=== PATIENT | male | born 1955 | race Caucasian/White ===

== ENCOUNTER 2018-03-30 07:33 | Inpatient (IN) ==
--- NOTE | 2018-03-10 08:57 | Anesthesiology Consultation ---
Date of Service March 10, 2018 Assessment & Plan Chart Review Chart Review: Acceptable Risk for Surgery and Patient seen in Pre Admission Testing Teaching & Discussion Pre-Anesthesia Teaching/Discussion Notes: Instructed NPO after midnight before surgery, except medications with 15 cc of water. Medication instructions provided according to the PAT guidelines. History Surgery Operation Date: 03/30/18 07:35 Proposed Procedures p Robotic Assisted Laparoscopic Retroperitoneal Prostatectomy, Possible Pelvic Lymph Node Dissection, Suprapubic Tube - Josiah Epperson MD Height/Weight Height: 5 ft 9 in Weight: 99.9 kg Allergies Allergy/AdvReac Type Severity Reaction Status Date / Time No Known Allergies Allergy Verified 03/07/18 11:02 Medications Home Medications Medication Instructions Recorded Confirmed Last Taken aspirin [Aspir-81] 81 mg PO QAM 03/07/18 03/07/18 Unknown lisinopril-hydrochlorothiazide 1 tab PO QAM 03/07/18 03/07/18 Unknown omega 2-vec-kgc-fish oil [Fish Oil] 1 cap PO QAM 03/07/18 03/07/18 Unknown potassium 2 tab PO QAM 03/07/18 03/07/18 Unknown turmeric root extract 500 mg PO QAM 03/07/18 03/07/18 Unknown Past Medical History Medical History BPH (benign prostatic hyperplasia) Degenerative disc disease LUMBAR STENOSIS History of prostate cancer SEE MRI (JAN 2018) SUGGESTIVE OF PROSTATE CA, REASON FOR PROCEDURE Hypertension Kidney stones Sciatica Past Surgical History Surgical History History of appendectomy History of herniorrhaphy X2 WITH MESH - LEFT INGUINAL, UMBILICAL History of tonsillectomy Salivary gland calculi EXCISION OF STONE Past Anesthesia History No Hx of Anesthesia Complications and No Family Hx of Anesthesia Complications History of PONV No Motion Sickness Screening History of Motion Sickness: No Social History Smoking Status: Former smoker tobacco type: cigarettes Smoking cigarettes per day: HX OF ON/OFF USE X15 YEARS, QUIT 30+YEARS AGO Do You Dip or Chew Tobacco: Yes (HERBAL CORN SILK, WEANING OFF. 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 Denies CP or SOB. ) Review of Systems Patient denies chest pain, shortness of breath, dyspnea on exertion, joint pain , cough, wheezing, palpitations. +acid reflux (rare - food related) Physical Exam Vital Signs BP: 114/75 P: 62 R: 18 T: 97.6 SPO2: 99% on RA ENMT Thyromental Distance: < 3.5 Finger Breadths (3) Mallampati Class: I Neck normal visual inspection and trachea midline; neck extension not limited Respiratory normal respiratory effort Auscultation: lungs clear to auscultation bilaterally Cardiovascular Rate/Rhythm: regular rate and regular rhythm Heart Sounds: no murmur Vessels: no carotid bruit Psychiatric Orientation: alert and oriented x 3 Testing Electrocardiogram Date: 03/10/18 Findings: + SB @ (56) Chest X-Ray Date: 03/10/18 Findings: + NAD FINDINGS: Cardiomediastinal and hilar silhouettes are within normal limits. No pneumothorax, pleural effusion, focal airspace consolidation or overt pulmonary edema. Bones of the chest appear grossly intact. Spondylitic spurring of the spine. Degenerative changes are noted about the left shoulder. IMPRESSION: No acute process. Laboratory Results 03/10/18 09:35 03/10/18 09:35 Blood Type O Positive 03/10/18 09:35 Antibody Screen NEGATIVE 03/10/18 09:35 Urine Color Yellow 03/10/18 09:35 Urine Appearance Clear (Clear) 03/10/18 09:35 Urine pH 6.5 (4.5-7.5) 03/10/18 09:35 Ur Specific [place] 1.015 (1.000-1.030) 03/10/18 09:35 Urine Protein Negative (Negative) 03/10/18 09:35 Urine Glucose (UA) Negative (Negative) 03/10/18 09:35 Urine Ketones Negative (Negative) 03/10/18 09:35 Urine Nitrite Negative (Negative) 03/10/18 09:35 Ur Leukocyte Esterase Negative (Negative) 03/10/18 09:35 03/10/18 09:35 Urine Culture - Final Urine,Clean Catch No growth - less than 1,000 colonies/mL.
--- NOTE | 2018-03-10 09:01 | PAT Medication Instructions ---
Medication Instructions Date of Service March 10, 2018 Home Medications aspirin [Aspir-81] 81 mg PO QAM lisinopril-hydrochlorothiazide 1 tab PO QAM omega 7-hdo-mdm-fish oil [Fish Oil] 1 cap PO QAM potassium 2 tab PO QAM turmeric root extract 500 mg PO QAM ASK your prescriber and surgeon aspirin [Aspir-81] 81 mg PO QAM STOP taking 2 weeks before surgery turmeric root extract 500 mg PO QAM omega 9-rvp-ius-fish oil [Fish Oil] 1 cap PO QAM DO NOT take the morning of surgery potassium 2 tab PO QAM lisinopril-hydrochlorothiazide 1 tab PO QAM Take morning of surgery NOTHING TO EAT OR DRINK AFTER MIDNIGHT: Other Notes If you have any questions please call us at [phone] or [phone] or [phone] or [phone]
[2018-03-10 10:15] LABS: Basophils # (auto) 0.02 K/uL (0-0.2); Basophils % (auto) 0.3 %; Eosinophils # (auto) 0.12 K/uL (0-0.5); Eosinophils % (auto) 1.9 %; Hematocrit (blood only) 40.4 % (42-52); Hemoglobin 13.9 g/dL (14.0-18.0); Immature Granulocytes # (auto) 0.02 K/uL (0.00-0.02); Immature Granulocytes % (auto) 0.3 %; Lymphocytes % (auto) 33.9 %; Mean Corpuscular Hgb Conc 34.4 g/dL (32-36); Mean Corpuscular Volume 93.7 fL (80-100); Mean Platelet Volume 9.9 fL (7.4-10.4); Monocytes # (auto) 0.47 K/uL (0.11-0.59); Monocytes % (auto) 7.6 %; Neutrophils # (auto) 3.47 K/uL (1.4-6.5); Platelet Count 240 K/uL (130-400); RDW Coefficient of Variation 13.9 % (11.5-14.5); RDW Standard Deviation 47.7 fL (36.4-46.3); Red Blood Count 4.31 M/uL (4.7-6.1)
[2018-03-10 10:21] LABS: Appearance Urine Clear (Clear); BUN Creatinine Ratio 15.1 (10-20); Bilirubin Urine Negative (Negative); Calcium 8.7 mg/dl (8.5-10.1); Color Urine Yellow; Est GFR (African American) 85.1; Est GFR (Non-African American) 73.4; Glucose Urine UA Negative (Negative); Ketones Urine Negative (Negative); Leukocyte Esterase Urine Negative (Negative); Nitrite Urine Negative (Negative); Potassium 4.6 mmol/L (3.5-5.1); Protein Urine Negative (Negative); Specific Gravity Urine 1.015 (1.000-1.030); Urobilinogen Urine Negative (Negative); pH Urine 6.5 (4.5-7.5)
--- NOTE | 2018-03-10 10:22 | XRay Report ---
XR chest Pre-admission PA/Lat HISTORY: 62 years-old Male pat preoperative exam. No acute chest complaints COMPARISON: Bone scan 03/08/2018, CT 12/16/2017 TECHNIQUE: PA and lateral views of the chest FINDINGS: Cardiomediastinal and hilar silhouettes are within normal limits. No pneumothorax, pleural effusion, focal airspace consolidation or overt pulmonary edema. Bones of the chest appear grossly intact. Spon dylitic spurring of the spine. Degenerative changes are noted about the left shoulder. IMPRESSION: No acute process. The above report was generated using voice recognition software. It may contain grammatical, syntax o r spelling errors. Electronically signed by: Arnel Voegl M.D. 03/10/2018 10:21 AM
[~2018-03-30 07:33] MED LIST: ACETAMINOPHEN 1000 MG/100 ML IV IV ONE; ACETAMINOPHEN 1000 MG/100 ML IV IV SCH; CEFAZOLIN 2000MG 2,000 MG/15 ML SYR IV SCH; HEPARIN SOD 5,000 UNIT/0.5 ML VIAL SQ SCH; LR 15ML/HR IV SCH
[2018-03-30] MEDS ORDERED: MIDAZOLAM HCL 1 MG/ML 2ML VIAL ONE (08:55)
[2018-03-30] MEDS ORDERED: fentaNYL citrate 100 MCG/2 ML VIAL ONE (08:55)
--- NOTE | 2018-03-30 09:40 | Anesthesiology Progress Note ---
Date of Service March 30, 2018 patient seen this morning preop. Patient in new-onset Afib. Discussed case w/ Dr John Epperson, and he concurs with cancellation of case. Cardiology notified and consulted for further care. Physical Exam Vital Signs Last Vital Signs Temp 36.7 C 03/30/18 09:05 Pulse 97 H 03/30/18 09:05 Resp 20 03/30/18 09:05 BP 125/97 03/30/18 09:05 Pulse Ox 97 03/30/18 09:05 Results & Data Medications Administered Lactated Ringer's (Lr) 1,000 mls @ 15 mls/hr IV .Q24H DONAVAN Stop: 03/31/18 05:59 Last Admin: 03/30/18 08:45 Dose: 15 mls/hr
--- NOTE | 2018-03-30 11:16 | Cardiology Consultation ---
Date of Consultation March 30, 2018 Assessment & Plan (1) Atrial fibrillation with rapid ventricular response: He is completely asymptomatic. Heart rate is currently elevated. Recommend beta-margoth. His resting heart rate in sinus was mildly bradycardic and therefore will have to monitor for bradycardia especially if he converts. He will likely convert to sinus rhythm spontaneously. Cannot rule out that bowel prep help induce atrial fibrillation with electrolyte imbalance. TSH, basic metabolic panel, and magnesium levels ordered. Echocardiogram ordered. We discussed the diagnosis in detail including several treatment strategies. RecommendRate control strategy with beta-margoth as above. His takes atenolol and therefore will use atenolol 25 mg once daily as they are both familiar with this medication. Recommend anticoagulation for stroke risk reduction as he does have an elevated chads Vasc score of 1. He would like to use 1 of the novel agents and prefers once daily therefore Xarelto 20 mg once daily would be recommended. Monitor CBC and renal function periodically. (2) Hypertension: Blood pressure is adequately controlled. Adding beta-margoth for atrial fibrillation as above. (3) Disposition: Plan of care discussed with Dr. Shafer, consulting physician. If heart rate improves with oral beta-margoth in the next 1-2 hours , could discharge home with Cardiology follow-up. He plans to follow-up here. If heart rate does not improve, would recommend hospitalization for heart rate control. Thank you for allowing me to participate in the care of your patient. Please call for any other questions or concerns. Sincerely, Damion Meek M.D. History of Present Illness Reason for Consultation: Atrial fibrillation Requesting Physician: Dr. Shafer Attending Physician: Josiah Epperson MD History of Present Illness Mr. Barillas is a very pleasant 62-year-old gentleman with a history significant for prostate cancer, hypertension, and dyslipidemia. He also has a history of anemia and has undergone colonoscopy x2. He has not required blood transfusion. He was here today for prostate surgery given his prostate cancer. He was found to be in atrial fibrillation on telemetry. An ECG was done which demonstrated atrial fibrillation at 96 bpm. Possible inferior infarct was also noted. He is completely asymptomatic. He denies palpitations, chest pain, shortness of breath, syncope, near-syncope, or bleeding such as melena, hematochezia, or hematuria. For the past several months he has had lower extremity swelling which tends to resolve overnight and worsens throughout the day. His has noted this. He denies a history of stroke or TIA. He denies diabetes or heart failure. He had a preoperative ECG performed on 03/10/2018 which demonstrated sinus bradycardia at 56 bpm. He did undergo bowel prep last night. Otherwise he has not had any non-induced diarrhea. He denies nausea, vomiting, abdominal pain, fever. He is asymptomatic. Review of systems: As above. Review of systems otherwise negative/ unremarkable. Social history: He smoked for approximately 15 years, 1-1.5 packs per day. He quit smoking several years ago. Occasional alcohol. No drugs. Lives at home with his . Originally from [facility] but currently lives in [place]. He has 2 sons. 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 His is at the bedside. Family history: No known premature CAD. Allergies Allergy/AdvReac Type Severity Reaction Status Date / Time No Known Allergies Allergy Verified 03/30/18 09:00 Home Medications Home Medications Medication Instructions Recorded Confirmed Type aspirin [Aspir-81] 81 mg PO QAM 03/07/18 03/30/18 History lisinopril-hydrochlorothiazide 1 tab PO QAM 03/07/18 03/30/18 History omega 2-rjf-uji-fish oil [Fish Oil] 1 cap PO QAM 03/07/18 03/30/18 History potassium 2 tab PO QAM 03/07/18 03/30/18 History turmeric root extract 500 mg PO QAM 03/07/18 03/30/18 History Patient History Medical History Dyslipidemia BPH (benign prostatic hyperplasia) Degenerative disc disease LUMBAR STENOSIS History of prostate cancer SEE MRI (JAN 2018) SUGGESTIVE OF PROSTATE CA, REASON FOR PROCEDURE Hypertension Kidney stones Sciatica Surgical History History of appendectomy History of herniorrhaphy X2 WITH MESH - LEFT INGUINAL, UMBILICAL History of tonsillectomy Salivary gland calculi EXCISION OF STONE Social History Current Living Situation: Spouse Other Information That Helps Us Care for You: No Feels Safe at Home: Yes Safety Concerns: Feels Safe At This Time Smoking Status: Former smoker Tobacco Type: cigarettes Cigarettes per Day: HX OF ON/OFF USE X15 YEARS, QUIT 30+YEARS AGO Do You Dip or Chew Tobacco: Yes ( HERBAL CORN SILK, WEANING OFF. ADVISED TO HOLD DOS.) Hx Alcohol Use: Yes Alcohol type: beer Alcohol Intake Frequency: holidays/ special occasions only Hx Substance Use: No Beliefs That Will Affect Care: None Preferred Language: [place] Communication Ability: Effective Title One Teacher Required: No Physical Exam 2 Vital Signs (Past 24 Hours): Last Vital Signs Temp 36.7 C 03/30/18 09:05 Pulse 97 H 03/30/18 09:05 Resp 20 03/30/18 09:05 BP 125/97 03/30/18 09:05 Pulse Ox 97 03/30/18 09:05 Physical Exam: Gen.: No acute distress. Alert and oriented. HEENT: Anicteric sclera. Neck: No JVD. No bruits. Normal carotid upstrokes bilaterally. Cardiac: PMI was not palpable. No ventricular heave. Irregularly irregular. Normal S1-S2. No murmurs, rubs, or gallops. Pulmonary: Clear to auscultation bilaterally without wheezes, rales, or rhonchi. Abdomen: Soft, nontender, nondistended, with normoactive bowel sounds. No bruits noted. Extremities: 2+ radial pulses bilaterally. 2+ posterior tibialis pulses bilaterally. Trace bilateral lower extremity edema. No cyanosis. Psychiatric: Affect appears appropriate. Results & Data Laboratory Results Laboratory Results WBC 6.20 K/uL (4.8-10.8) 03/10/18 09:35 RBC 4.31 M/uL (4.7-6.1) L 03/10/18 09:35 Hgb 13.9 g/dL (14.0-18.0) L 03/10/18 09:35 Hct 40.4 % (42-52) L 03/10/18 09:35 MCV 93.7 fL (80-100) 03/10/18 09:35 MCH 32.3 pg (25-34) 03/10/18 09:35 MCHC 34.4 g/dL (32-36) 03/10/18 09:35 RDW Std Deviation 47.7 fL (36.4-46.3) H 03/10/18 09:35 RDW Coeff of [place] 13.9 % (11.5-14.5) 03/10/18 09:35 Plt Count 240 K/uL (130-400) 03/10/18 09:35 MPV 9.9 fL (7.4-10.4) 03/10/18 09:35 Immature Gran % (Auto) 0.3 % 03/10/18 09:35 Neut % (Auto) 56.0 % 03/10/18 09:35 Lymph % (Auto) 33.9 % 03/10/18 09:35 [place] % (Auto) 7.6 % 03/10/18 09:35 Eos % (Auto) 1.9 % 03/10/18 09:35 Baso % (Auto) 0.3 % 03/10/18 09:35 Immature Gran # (Auto) 0.02 K/uL (0.00-0.02) 03/10/18 09:35 Neut # (Auto) 3.47 K/uL (1.4-6.5) 03/10/18 09:35 Lymph # (Auto) 2.10 K/uL (1.2-3.4) 03/10/18 09:35 [place] # (Auto) 0.47 K/uL (0.11-0.59) 03/10/18 09:35 Eos # (Auto) 0.12 K/uL (0-0.5) 03/10/18 09:35 Baso # (Auto) 0.02 K/uL (0-0.2) 03/10/18 09:35 Sodium 135 mmol/L (136-145) L 03/10/18 09:35 Potassium 4.6 mmol/L (3.5-5.1) 03/10/18 09:35 Chloride 102 mmol/L (98-107) 03/10/18 09:35 Carbon Dioxide 30 mmol/L (21-32) 03/10/18 09:35 Anion Gap 3.0 (3-11) 03/10/18 09:35 BUN 16 mg/dl (7-18) 03/10/18 09:35 Creatinine 1.09 mg/dl (0.6-1.4) 03/10/18 09:35 Est Cr Clr Drug Dosing 84.0 ml/min 03/10/18 09:35 Est GFR ( Amer) 85.1 03/10/18 09:35 Est GFR (Non-Af Amer) 73.4 03/10/18 09:35 BUN/Creatinine Ratio 15.1 (10-20) 03/10/18 09:35 Glucose 97 mg/dl (70-99) 03/10/18 09:35 Calcium 8.7 mg/dl (8.5-10.1) 03/10/18 09:35 Urine Color Yellow 03/10/18 09:35 Urine Appearance Clear (Clear) 03/10/18 09:35 Urine pH 6.5 (4.5-7.5) 03/10/18 09:35 Ur Specific [place] 1.015 (1.000-1.030) 03/10/18 09:35 Urine Protein Negative (Negative) 03/10/18 09:35 Urine Glucose (UA) Negative (Negative) 03/10/18 09:35 Urine Ketones Negative (Negative) 03/10/18 09:35 Urine Blood Negative (Negative) 03/10/18 09:35 Urine Nitrite Negative (Negative) 03/10/18 09:35 Urine Bilirubin Negative (Negative) 03/10/18 09:35 Urine Urobilinogen Negative (Negative) 03/10/18 09:35 Ur Leukocyte Esterase Negative (Negative) 03/10/18 09:35 Blood Type O Positive 03/10/18 09:35 Antibody Screen NEGATIVE 03/10/18 09:35 Diagnostic Findings Telemetry personally reviewed: Atrial fibrillation with heart rates ranging from 110 to 130s currently. ECG personally reviewed. ECG 03/10/2018: Sinus bradycardia 56 bpm. ECG 03/30/2018: Atrial fibrillation 96 bpm. Possible inferior infarct. Medications Administered Current Inpatient Medications Acetaminophen (Ofirmev) 1,000 mg IV PREOP DONAVAN Stop: 03/30/18 18:00 Atenolol (Tenormin) 25 mg PO NOW ONE Stop: 03/30/18 11:11 Heparin Sodium (Porcine) (Heparin Sodium (Porcine)) 5,000 units SQ PREOP DONAVAN Stop: 03/30/18 18:00 Lactated Ringer's (Lr) 1,000 mls @ 15 mls/hr IV .Q24H DONAVAN Stop: 03/31/18 05:59 Last Admin: 03/30/18 08:45 Dose: 15 mls/hr Cefazolin Sodium (Ancef 2000mg) 2,000 mg in 15 mls @ 3.75 mls/min IV PREOP DONAVAN ; Protocol Stop: 03/30/18 18:00 Lactated Ringer's (Lr) 1,000 mls @ 15 mls/hr IV .Q24H DONAVAN Stop: 03/31/18 05:59
--- NOTE | 2018-03-30 12:11 | History & Physical Report ---
Date of Service March 30, 2018 Assessment & Plan (1) Atrial fibrillation: PT found to have atrial fibrillation RVR in pre op for prostate cancer, I personally phoned pcp kumar Bender in [place] and checked records, pt does not have history of same, pending stat labs, pt did have bowel prep which may make him become hypokalemic, will have on tele, check labs and echo, and have cardiology consult lovenox 1 mg/kg for thrombo emboic prevention (2) Hypertension: typically takes lisinopril/hctz, will continue (3) Dyslipidemia: usually only takes fishoil (4) History of prostate cancer: was to have surgery for prostate cancer this will be on hold at this time History of Present Illness Primary Care Provider: Kumar Bender She presented preop for robotic prostate surgery for malignancy. He is found to be in atrial fibrillation with rapid ventricular response in the 120s. The surgery was canceled and cardiology was consulted. They recommended beta- margoth therapy and initiation of anticoagulation. Echocardiogram was read to 52 have no valvular disease associate with his atrial fibrillation therefore he is a candidate for doac therapy. He was given a dose of Lovenox prior to the echocardiogram 1 mg/kg Allergies Allergy/AdvReac Type Severity Reaction Status Date / Time No Known Allergies Allergy Verified 03/30/18 09:00 Home Medications Home Medications Medication Instructions Recorded Confirmed Type aspirin [Aspir-81] 81 mg PO QAM 03/07/18 03/30/18 History lisinopril-hydrochlorothiazide 1 tab PO QAM 03/07/18 03/30/18 History omega 1-qqu-mmx-fish oil [Fish Oil] 1 cap PO QAM 03/07/18 03/30/18 History potassium 2 tab PO QAM 03/07/18 03/30/18 History turmeric root extract 500 mg PO QAM 03/07/18 03/30/18 History apixaban [Eliquis] 5 mg PO BID #60 tab 03/30/18 Rx metoprolol succinate 25 mg PO DAILY #30 tab 03/30/18 Rx Past Med/Surg History Medical History Dyslipidemia BPH (benign prostatic hyperplasia) Degenerative disc disease LUMBAR STENOSIS History of prostate cancer SEE MRI (JAN 2018) SUGGESTIVE OF PROSTATE CA, REASON FOR PROCEDURE Hypertension Kidney stones Sciatica Surgical History History of appendectomy History of herniorrhaphy X2 WITH MESH - LEFT INGUINAL, UMBILICAL History of tonsillectomy Salivary gland calculi EXCISION OF STONE Family History Unknown Hypertension Social History Current Living Situation: Spouse Other Information That Helps Us Care for You: No Feels Safe at Home: Yes Safety Concerns: Feels Safe At This Time Smoking Status: Former smoker Tobacco Type: cigarettes Cigarettes per Day: HX OF ON/OFF USE X15 YEARS, QUIT 30+YEARS AGO Do You Dip or Chew Tobacco: Yes ( HERBAL CORN SILK, WEANING OFF. ADVISED TO HOLD DOS.) Hx Alcohol Use: Yes Alcohol type: beer Alcohol Intake Frequency: holidays/ special occasions only Hx Substance Use: No Beliefs That Will Affect Care: None Preferred Language: Frisian Communication Ability: Effective Industrial Insulator Required: No Review of Systems ROS: well nourished well developed. No double vision blurry vision No problems with speech or swallowing No palpitations, chest pain or pressure patient cannot since his atrial fibrillation by feeling any abnormal sensations in his chest No Wheezing or breathing issues No abdominal pain nausea vomiting diarrhea changes in appetite or weight No burning urine urine frequency or changes in color No focal joint pain or muscle pain No skin rashes or oral lesions No unusual bruising or bleeding No focused back pain or numbness or loss of strength No changes in memory or confusion Physical Exam 2 Vital Signs (Past 24 Hours): Last Vital Signs Temp 36.7 C 03/30/18 09:05 Pulse 97 H 03/30/18 09:05 Resp 20 03/30/18 09:05 BP 125/97 03/30/18 09:05 Pulse Ox 97 03/30/18 09:05 The patient appeared well nourished and normally developed. Vital signs as documented. Head exam is unremarkable. No scleral icterus or corneal arcus noted Neck is without jugular venous distension, thyromegaly, or lymphademopathy Lungs are clear to auscultation and percussion. Cardiac exam reveals he is irregularly irregular but not that rapid his heart rates around 100 when I visited him he has no heart murmurs Abdominal exam reveals normal bowel sounds, no masses, no organomegaly Extremities are nonedematous and both pedal pulses are normal. Neurologic exam is A&Ox3, no focal deficits, strength is equal bilateral Skin is warm Dry without bruises or lesions Results & Data ECG Additional Comments: EKG showed atrial fibrillation with a ventricular response in the 100 range
[2018-03-30 12:33] LABS: BUN Creatinine Ratio 13.4 (10-20); Calcium 8.6 mg/dl (8.5-10.1); Creatinine Clr Calc Pharmacy 87.2 ml/min; Est GFR (Non-African American) 76.8; Magnesium 2.6 mg/dl (1.8-2.4); Potassium 3.9 mmol/L (3.5-5.1)
[2018-03-30] MEDS ORDERED: ATENOLOL 25 MG TABLET PO ONE (13:30)
[2018-03-30] MEDS ORDERED: ALUMINUM/MAGNESIUM SUSP 30 ML UDC PO PRN (13:31)
[2018-03-30] MEDS ORDERED: POLYETHYLENE (MIRALAX) 17 GM PACK PO PRN (13:31)
[2018-03-30] MEDS ORDERED: ACETAMINOPHEN 325 MG TAB PO PRN (13:31)
[2018-03-30] MEDS ORDERED: ONDANSETRON INJ 2 MG/ML 2 ML VIAL IV PRN (13:31)
[2018-03-30 13:52] LABS: Basophils # (auto) 0.01 K/uL (0-0.2); Basophils % (auto) 0.1 %; Eosinophils # (auto) 0.06 K/uL (0-0.5); Eosinophils % (auto) 0.8 %; Hematocrit (blood only) 40.2 % (42-52); Hemoglobin 14.3 g/dL (14.0-18.0); Immature Granulocytes # (auto) 0.02 K/uL (0.00-0.02); Immature Granulocytes % (auto) 0.3 %; Lymphocytes % (auto) 31.9 %; Mean Corpuscular Volume 92.6 fL (80-100); Mean Platelet Volume 9.6 fL (7.4-10.4); Monocytes # (auto) 0.47 K/uL (0.11-0.59); Monocytes % (auto) 6.2 %; Neutrophils # (auto) 4.57 K/uL (1.4-6.5); Neutrophils % (auto) 60.7 %; Platelet Count 254 K/uL (130-400); RDW Coefficient of Variation 13.9 % (11.5-14.5); RDW Standard Deviation 47.4 fL (36.4-46.3); Red Blood Count 4.34 M/uL (4.7-6.1); White Blood Count 7.53 K/uL (4.8-10.8)
--- NOTE | 2018-03-30 13:56 | XRay Report ---
XR chest 1V portable CLINICAL HISTORY: Atrial Fibrillation cardiac arrhythmia COMPARISON STUDY: 03/10/2018 FINDINGS: The bones soft tissues and hemidiaphragms are normal. The cardiomediastinal silhouette is n ormal. The lungs are clear. The pulmonary vasculature is normal. IMPRESSION: Negative chest. The above report was generated using voice recognition software. It may contain grammatical, syntax or spelling errors. Electronically signed by: Chi Gomez M.D. 03/30/2018 1:55 PM
[2018-03-30 14:16] LABS: BUN Creatinine Ratio 13.7 (10-20); Blood Urea Nitrogen 13 mg/dl (7-18); Calcium 9.3 mg/dl (8.5-10.1); Carbon Dioxide 25 mmol/L (21-32); Chloride 107 mmol/L (98-107); Creatinine Clr Calc Pharmacy 95.3 ml/min; Est GFR (African American) 99.2; Est GFR (Non-African American) 85.6; Glucose 91 mg/dl (70-99); Magnesium 2.5 mg/dl (1.8-2.4); Potassium 3.8 mmol/L (3.5-5.1); Sodium 136 mmol/L (136-145); Troponin I < 0.015 ng/ml (0-0.045)
[2018-03-30 14:34] LABS: Mean Corpuscular Hgb Conc 35.6 g/dL (32-36)
[2018-03-30] MEDS ORDERED: ENOXAPARIN 100 MG/1ML SYR SC ONE (15:30)
[2018-03-30] MEDS ORDERED: METOPROLOL TARTRATE 25 MG TAB PO STA (15:35)
--- NOTE | 2018-03-30 15:50 | Discharge Summary ---
Date of Service March 30, 2018 Admission HPI Per Admitting Provider She presented preop for robotic prostate surgery for malignancy. He is found to be in atrial fibrillation with rapid ventricular response in the 120s. The surgery was canceled and cardiology was consulted. They recommended beta- margoth therapy and initiation of anticoagulation. Echocardiogram was read to 52 have no valvular disease associate with his atrial fibrillation therefore he is a candidate for doac therapy. He was given a dose of Lovenox prior to the echocardiogram 1 mg/kg Principal Diagnosis arial fibrillation converted to sinus spontaneously Discharge Exam Patient converted to sinus rhythm around 1310 hrs. I visited the patient and his he was with no distress his cardiac exam was regular his lungs were clear he is able to ambulate in the hallway without any dyspnea Discharge Data Allergies Allergy/AdvReac Type Severity Reaction Status Date / Time No Known Allergies Allergy Verified 03/30/18 09:00 Consultations 03/30/18 09:41 Consult Cardiology Stat 03/30/18 11:26 Consult Hospitalist Stat 03/30/18 13:31 Consult Case Management - Discharge Planning Routine Procedures Performed Operation Date: 03/30/18 09:50 <No data on this case meets the specified criteria> Hospital Course (1) Atrial fibrillation: PT found to have atrial fibrillation RVR in pre op for prostate cancer, I personally phoned pcp kumar Bender in [place] and checked records, pt does not have history of same, Laboratories did not show Po kalemia hypomagnesemia. Echocardiogram did not show valvular heart disease Decision was made to proceed with Eliquis therapy a prescription was electronically sent to his [place] pharmacy. Patient will have his lisinopril hydrochlorothiazide discontinued he will be put on metoprolol extended release 25 mg daily starting on 03/31 He will have a follow-up with Dr. Ramirez (2) Hypertension: typically takes lisinopril/hctz, patient will be changed to metoprolol succinate 25 (3) Dyslipidemia: usually only takes fishoil (4) History of prostate cancer: was to have surgery for prostate cancer this will be on hold at this time is a follow-up appointment with urology April 26 to discuss rescheduling of surgery Total Time Total Time Spent Total Time Spent (In Minutes): greater than 30 minutes were required to prepare discharge Discharge Plan Discharge Items Patient Disposition: Home - Self-Care Reason For Visit: AFIB RVR Discharge Diagnosis: atrial fibrillation with rapid rate Discharge Goals: Decrease discomfort Activity: Resume your previous activity Activity Comment: non intentional exercise until you see cardiology Non-emergency contact: Primary Care Provider and Maintenance Parts Technician Call non-emergency contact if: you have any medication questions and your symptoms worsen Follow-up/Referrals: Dean Ramirez MD [Maintenance Parts Technician] - Kumar Bender M.D. [Primary Care Provider] - Diet: Regular Addtl Provider Instructions: please start your blood thinner this evening, please follow up with dr ramirez while on the new medication for your afib please hold your typical lisinopril hctz Prescriptions: New apixaban [Eliquis] 5 mg tablet 5 mg PO BID Qty: 60 RF: 5 metoprolol succinate 25 mg tablet extended release 24 hr 25 mg PO DAILY Qty: 30 RF: 5 Continue aspirin [Aspir-81] 81 mg Tablet,Delayed Release (Dr/Ec) 81 mg PO QAM RF: 0 omega 4-yqi-ydk-fish oil [Fish Oil] 1,000 mg (120 mg-180 mg) Capsule 1 cap PO QAM RF: 0 turmeric root extract 500 mg Capsule 500 mg PO QAM RF: 0 Discontinued potassium 99 mg Tablet 2 tab PO QAM RF: 0 lisinopril-hydrochlorothiazide 20-25 mg Tablet 1 tab PO QAM RF: 0 Stand-Alone Forms: [facility]/Other Patient Handouts: Fibrillation Atrial Dc Discharge Orders: Discharge Order (Routine); Ordered 03/30/18 Ordered By: Silas Roberts Admission Data Admit Date/Time: 03/30/18 13:31 Attending Provider: Silas Roberts Admit Provider: Silas Roberts Primary Care Provider: Kumar Bender Other Providers: Dean Ramirez ; Ruslan Sawant ; Jero Zurita ; Sedrick Bazan ; Cory Vickers ; Tomás Roberts Jr ; Concetta Posey ; Rolanda Marcano ; Fransisco Ortiz ; Fransisco Aguirre ; Ashkan Nava ; Jerry Washington ; Johan Billy ; Gianna Cox ; Venice Meek Service: Telemetry
[2018-03-30] MEDS ORDERED: METOPROLOL TARTRATE 25 MG TAB PO SCH (21:00)
[2018-03-31] MEDS ORDERED: ENOXAPARIN 100 MG/1ML SYR SC SCH (03:30)
[2018-03-31] MEDS ORDERED: LISINOPRIL/HCTZ 20/25MG 1 TAB PO SCH (09:00)
[2018-03-31] MEDS ORDERED: ASPIRIN 81 MG ECTAB PO SCH (09:00)
== END 2018-03-30 16:10 | disposition home or self-care (01) | DRG 310 ==
LOC: EDACCT# → ASU 07:33 → 2N 07:33 → OBSVTOIN 13:31

== ENCOUNTER 2018-05-18 05:18 | Inpatient (IN) ==
--- NOTE | 2018-05-01 12:56 | Anesthesiology Consultation ---
Date of Service May 01, 2018 Assessment & Plan Chart Review Chart Review: Acceptable Risk for Surgery and Patient NOT seen in Pre Admission Testing Patient was originally scheduled for this surgery Mar 2018. On DOS, patient found to be in new onsent A fib with RVR. Surgery postponed and patient admitted and seen by cardiology and internal medicine. Started on eliquis after no clots found on echo and metoprolol. Please include patient's most recent cardiac visit note to the part. Consults Requested none History Surgery Operation Date: 05/18/18 07:30 Proposed Procedures p Robotic Laparoscopic Radical Prostatectomy, Possible Bilateral Partial Lymph Node Dissection; Suprapubic Tube Placement - Josiah Epperson MD Height/Weight Height: 5 ft 9 in Weight: 96.162 kg Allergies Allergy/AdvReac Type Severity Reaction Status Date / Time No Known Allergies Allergy Verified 05/01/18 08:40 Medications Home Medications Medication Instructions Recorded Confirmed Last Taken aspirin [Aspir-81] 81 mg PO QAM 03/07/18 05/01/18 03/20/18 05:30 omega 6-lsm-rfb-fish oil [Fish Oil] 1 cap PO QAM 03/07/18 05/01/18 03/20/18 05:30 turmeric root extract 500 mg PO QAM 03/07/18 05/01/18 03/20/18 05:30 apixaban [Eliquis] 5 mg PO BID #60 tab 03/30/18 05/01/18 Unknown metoprolol succinate 25 mg PO DAILY #30 tab 03/30/18 05/01/18 Unknown Past Medical History Medical History Atrial fibrillation NEW ONSET 03/30/2018 - [facility] - ON ELIQUIS - FOLLOWS W/ DR. THURSTON BPH (benign prostatic hyperplasia) Degenerative disc disease LUMBAR STENOSIS Dyslipidemia History of prostate cancer SEE MRI (JAN 2018) SUGGESTIVE OF PROSTATE CA, REASON FOR PROCEDURE Hypertension Kidney stones Sciatica Past Family History Family History Unknown Hypertension Past Surgical History Surgical History History of appendectomy History of herniorrhaphy X2 WITH MESH - LEFT INGUINAL, UMBILICAL History of tonsillectomy Salivary gland calculi EXCISION OF STONE Social History Smoking Status: Former smoker tobacco type: cigarettes Smoking cigarettes per day: HX OF ON/OFF USE X15 YEARS, QUIT 30+YEARS AGO Do You Dip or Chew Tobacco: Yes (HERBAL CORN SILK, WEANING OFF, ADVISED TO HOLD DOS) Hx Alcohol Use: Yes Alcohol type: beer alcohol intake frequency: holidays/special occasions only Hx Substance Use: No substance use type: does not use Testing Electrocardiogram Date: 04/14/18 Findings: + AFIB @ (90) A fib. Borderline LAD. Chest X-Ray Date: 03/30/18 CLINICAL HISTORY: Atrial Fibrillation cardiac arrhythmia COMPARISON STUDY: 03/10/2018 FINDINGS: The bones soft tissues and hemidiaphragms are normal. The cardiomediastinal silhouette is normal. The lungs are clear. The pulmonary vasculature is normal. IMPRESSION: Negative chest Echocardiogram Date: 03/30/18 Normal LV size and function. EF 55-60%. No RWMA. No LVH. Laboratory Results Laboratory Tests 04/26/18 04/26/18 14:30 14:30 WBC 8.00 Hgb 13.2 L Hct 38.3 L Plt Count 231 Sodium 140 Potassium 3.7 Chloride 108 H Carbon Dioxide 27 BUN 21 H Creatinine 1.06 Glucose 81
[2018-05-18] MEDS ORDERED: LR 15ML/HR IV SCH ×2 (06:00)
[2018-05-18] MEDS ORDERED: ACETAMINOPHEN 1,000 MG/100 ML VIAL IV ONE (06:00)
[2018-05-18] MEDS ORDERED: CEFAZOLIN 2000MG 2,000 MG/15 ML SYR IV SCH (06:00)
[2018-05-18] MEDS ORDERED: HEPARIN SOD 5,000 UNIT/0.5 ML VIAL SQ SCH (06:00)
--- NOTE | 2018-05-18 06:54 | History & Physical Bridge Note ---
Date of Service May 18, 2018 History & Physical Bridge Note I have examined the patient, reviewed the History & Physical and in the interval since the performance of the History & Physical I have noted the following changes of clinical significance: no changes noted
[2018-05-18] MEDS ORDERED: BUPIVACAINE 0.5 % 5 MG/1 ML MPF 30ML VIAL ONE (07:04)
[2018-05-18] MEDS ORDERED: fentaNYL citrate 100 MCG/2 ML VIAL ONE ×3 (07:09→12:30)
[2018-05-18] MEDS ORDERED: MIDAZOLAM HCL 1 MG/ML 2ML VIAL ONE (07:09)
[2018-05-18] MEDS ORDERED: LIDOCAINE 2% JELLY 5 ML TUBE ONE (07:12)
[2018-05-18] MEDS ORDERED: ATROPINE SULFATE 0.1 MG/ML 10ML SYR IV PRN (07:27)
[2018-05-18] MEDS ORDERED: ePHEDrine sulfate 50 MG/ML AMP IV PRN (07:27)
[2018-05-18] MEDS ORDERED: HYDROmorphone INJ 2 MG/ML SYR/VIAL IV PRN (07:27)
[2018-05-18] MEDS ORDERED: PROMETHAZINE HCL 6.25 MG in SODIUM CHLORIDE 0.9% 50 ML IV PRN (07:27)
[2018-05-18] MEDS ORDERED: ONDANSETRON INJ 2 MG/ML 2 ML VIAL IV PRN ×2 (07:27→14:43)
[2018-05-18] MEDS ORDERED: fentaNYL citrate 100 MCG/2 ML VIAL IV PRN (07:27)
[2018-05-18] MEDS ORDERED: GLYCOPYRROLATE 0.2 MG/ML VIAL ONE (09:09)
[2018-05-18] MEDS ORDERED: LIDOCAINE HCL 2% 2 ML VIAL/AMP(20MG/ML) INFIL ONE (09:09)
[2018-05-18] MEDS ORDERED: PHENYLEPHRINE 100MCG/ML 5ML SYR ONE ×2 (09:09→13:09)
[2018-05-18] MEDS ORDERED: ePHEDrine sulfate 50 MG/ML SYR ONE (09:09)
[2018-05-18] MEDS ORDERED: NEOSTIGMINE METHYLSULFATE 5 MG/5 ML SYR ONE (09:09)
[2018-05-18] MEDS ORDERED: PROPOFOL IV EMULSION 10 MG/ML 20 ML VIAL IV ONE (09:09)
[2018-05-18] MEDS ORDERED: ROCURONIUM BROMIDE 10 MG/ML 5 ML VIAL ONE (09:09)
[2018-05-18] MEDS ORDERED: ONDANSETRON INJ 2 MG/ML 2 ML VIAL ONE (09:09)
[2018-05-18] MEDS ORDERED: DEXAMETHASONE SOD INJ 4 MG/ML VIAL ONE (09:09)
[2018-05-18] MEDS ORDERED: METHYLENE BLUE 0.5% 10 ML VIAL ONE (09:34)
[2018-05-18] MEDS ORDERED: FLOSEAL HEMOSTATIC MATRIX 10ML TOP ONE (10:12)
[2018-05-18] MEDS ORDERED: SURGICEL ABSORB HEMOSTAT 2IN X 14IN TOP ONE (10:12)
[2018-05-18] MEDS ORDERED: CISATRACURIUM BESYLATE IV SOLN 2 MG/ML 10 ML VIAL IV ONE (10:41)
[2018-05-18] MEDS ORDERED: METOPROLOL TARTRATE 1 MG/ML VIAL IV ONE (12:26)
--- NOTE | 2018-05-18 12:35 | Operative Report ---
Post Operative Report Pre & Post Diagnosis Operation Date: 05/18/18 07:30 Pre-Op Diagnosis: Prostate Cancer Post-Op Diagnosis: Prostate Cancer Procedure Operation Date: 05/18/18 07:30 Actual Procedures p Robotic Assisted Laparoscopic Prostatectomy,Bladder Neck Reconstruction and Bilateral Pelvic Lymph Node Dissection(Not Applicable) - Josiah Epperson MD Surgeon Josiah Epperson MD Bilingual Administrative Assistant Dean Reynaga Estimated Blood Loss 100 Findings Consistent with Post-Op Diagnosis Specimens Bladder neck, periprostatic fat, L PLN, R PLN, prostate + SVs Description of Procedure RARLP, BPLND, bladder neck reconstruction I attest to the content of the Intraoperative Record and any orders documented therein. Any exceptions are noted below.
[2018-05-18] MEDS ORDERED: ESMOLOL HCL INJ 10 MG/ML 10ML VIAL IV ONE (12:59)
[2018-05-18 13:23] LABS: Basophils # (auto) 0.01 K/uL (0-0.2); Basophils % (auto) 0.1 %; Eosinophils # (auto) 0.01 K/uL (0-0.5); Eosinophils % (auto) 0.1 %; Hematocrit (blood only) 40.9 % (42-52); Immature Granulocytes # (auto) 0.04 K/uL (0.00-0.02); Immature Granulocytes % (auto) 0.3 %; Lymphocytes % (auto) 10.3 %; Mean Corpuscular Volume 94.9 fL (80-100); Mean Platelet Volume 10.1 fL (7.4-10.4); Monocytes # (auto) 0.09 K/uL (0.11-0.59); Monocytes % (auto) 0.8 %; Neutrophils % (auto) 88.4 %; Platelet Count 255 K/uL (130-400); RDW Coefficient of Variation 14.2 % (11.5-14.5); RDW Standard Deviation 49.4 fL (36.4-46.3); Red Blood Count 4.31 M/uL (4.7-6.1); White Blood Count 11.65 K/uL (4.8-10.8)
[2018-05-18 13:34] LABS: Mean Corpuscular Hgb Conc 34.2 g/dL (32-36)
--- NOTE | 2018-05-18 13:37 | Anesthesiology Progress Note ---
Date of Service May 18, 2018 Anesthesia Post Procedure Vital Signs Vital Signs: Temp Pulse Pulse Resp BP Pulse Ox 05/18/18 12:48 36.5 C 133 H 16 140/109 H 99 05/18/18 05:54 36.7 C 58 L 18 154/84 H 98 Notes Mental Status: alert / awake / arousable Patient Amnestic to Procedure: Yes Nausea / Vomiting: adequately controlled Pain: adequately controlled Airway Patency, RR, SpO2: stable & adequate BP & HR: stable & adequate and see Notes below Hydration State: stable & adequate Anesthetic Complications: no major complications apparent and Pt Satisfied with anesthetic care Notes: This patient has a history of paroxysmal AFib with RVR diagnosed 6 weeks ago, for which he was rate controlled and placed on anticoagulation as an outpatient. This morning, he held his Toprol XL, but was noted to be sinus rhythm in the 60s-70s and so was not treated with additional beta blockade. During emergence, the patient was in aFib with hypertension and RVR, ventricular rate 120+. He was treated with 5mg of metoprolol and extubated. On arrival in PACU his ventricular rate was 140+, with mild hypertension. He was treated with 5mg additional metoprolol. Subsequently he became tachycardic to 180+, still irregular, with hypotension to the 50s systolic. He was awake and oriented despite this pressure. While preparations were made for emergent cardioversion, his rate fell to afib 120-130s, with BP back to the 140s without intervention. 5mg of Metoprolol given and preparations were made to start diltiazem drip. Prior to initiation of the drip, the patient converted to NSR at a rate of 70 and BP 120s/70s. He was asymptomatic. I spoke with [facility] who will consult and evaluate the patient on telemetry floor. At this point, he is okay to go to the floor on monitor.
[2018-05-18 13:39] LABS: Albumin Level 3.5 gm/dl (3.4-5.0); Calcium 7.7 mg/dl (8.5-10.1); Creatinine Clr Calc Pharmacy 73.8 ml/min; Est GFR (African American) 72.8; Est GFR (Non-African American) 62.8; Potassium 4.4 mmol/L (3.5-5.1)
[2018-05-18 13:42] LABS: Albumin Globulin Ratio 1.1 (0.9-2); Bilirubin,Total 0.6 mg/dl (0.2-1); Globulin 3.1 gm/dl (2.5-4.0); Total Protein 6.6 gm/dl (6.4-8.2)
[2018-05-18] MEDS ORDERED: METOPROLOL TARTRATE 1 MG/ML VIAL IV STA ×2 (13:52)
[2018-05-18] MEDS ORDERED: OXYCODONE HCL IR 5 MG TAB (IMMEDIATE RELEASE) PO PRN (14:43)
[2018-05-18] MEDS ORDERED: MoRPHine SULFATE 4 MG/ML 1 ML CARP\\VIAL IV PRN (14:43)
[2018-05-18] MEDS ORDERED: ACETAMINOPHEN 325 MG TAB PO PRN (14:43)
[2018-05-18 15:07] LABS: Basophils # (auto) 0.01 K/uL (0-0.2); Basophils % (auto) 0.1 %; Hematocrit (blood only) 40.6 % (42-52); Hemoglobin 13.8 g/dL (14.0-18.0); Immature Granulocytes # (auto) 0.03 K/uL (0.00-0.02); Immature Granulocytes % (auto) 0.2 %; Lymphocytes # (auto) 0.65 K/uL (1.2-3.4); Lymphocytes % (auto) 5.3 %; Mean Corpuscular Volume 94.6 fL (80-100); Monocytes # (auto) 0.17 K/uL (0.11-0.59); Monocytes % (auto) 1.4 %; Neutrophils # (auto) 11.51 K/uL (1.4-6.5); Platelet Count 222 K/uL (130-400); RDW Coefficient of Variation 14.3 % (11.5-14.5); RDW Standard Deviation 48.7 fL (36.4-46.3); Red Blood Count 4.29 M/uL (4.7-6.1); White Blood Count 12.37 K/uL (4.8-10.8)
[2018-05-18] MEDS: LACTATED RINGER'S 1,000 ML IV SCH ×2 (15:27→22:48)
[2018-05-18 15:30] LABS: BUN Creatinine Ratio 15.4 (10-20); Calcium 7.9 mg/dl (8.5-10.1); Est GFR (African American) 84.1; Est GFR (Non-African American) 72.6; Potassium 4.3 mmol/L (3.5-5.1)
[2018-05-18] MEDS: CEFAZOLIN 2000MG 2,000 MG/15 ML SYR IV SCH ×2 (15:37→23:54)
[2018-05-18] MEDS: OXYCODONE HCL IR 5 MG TAB (IMMEDIATE RELEASE) PO PRN (15:37)
[2018-05-18 16:09] LABS: Prothrombin Time 10.4 Seconds (9.0-12.0)
[2018-05-18] MEDS ORDERED: INFLUENZA ADMINISTRATION CHARGE ONE (16:30)
[2018-05-18] MEDS ORDERED: INFLUENZA VIRUS QUAD VACCINE 0.5 ML SYR IM ONE (16:30)
--- NOTE | 2018-05-18 18:03 | Cardiology Consultation ---
Date of Consultation May 18, 2018 Assessment & Plan (1) Atrial fibrillation with rapid ventricular response: Patient had episodes of paroxysmal atrial fibrillation today. Generally speaking is well tolerated although there was 1 episode where his blood pressure was low. Very possible that some of the metabolic derangements associated with his surgery contributed to development of atrial fibrillation and certainly the associated high rates. Interestingly, the patient does keep good records of his heart rates at home and feels that when he has atrial fibrillation his heart rate is generally in the 90s or 100 range. Given the relative paucity of symptoms associated with the arrhythmia, I do not feel that a rhythm control strategy is necessary. I think continuation of rate control strategy is adequate. I am willing to monitor his heart rate overnight and determine if higher doses of metoprolol are warranted in the morning. Given what he describes as relatively good rate control at home and relative bradycardia seen at other times, perhaps no adjustment in his medical regimen is required. If his blood pressures are higher, we could consider adding a low dose of diltiazem. I did describe to the patient and his family the possibility that he may have tachy-daisha syndrome. Depending on his overall rate control in frequency of episodes permanent pacing could be an option. Patient should resume anticoagulation at the discretion of his surgeon. Present on Admission?: No History of Present Illness Reason for Consultation: Atrial fibrillation Requesting Physician: Zhou Attending Physician: Josiah Epperson MD History of Present Illness Patient is a 62 year old gentleman with a known history of paroxysmal atrial fibrillation who underwent robot assisted prostatectomy today. In the perioperative. He had episodes of atrial fibrillation and associated high ventricular rates. A 1 point the patient was noted to have a high ventricular rate and low blood pressure. Preparations were being made for cardioversion when his hemodynamics and heart rate improved. Eventually he converted back to a normal sinus rhythm. Patient states that during this time he was aware palpitations. However, he did not report other symptoms of dizziness, shortness of breath or chest discomfort. Patient was initially diagnosed with atrial fibrillation in March of this year. This was during preparations for prostatectomy. At that time he did have a sense of palpitation but otherwise appeared to be asymptomatic even with high ventricular rates. Patient was started on a medical regimen consisting of Top rol XL and anticoagulation. He states that after discharge he did notice a few episodes of palpitations. However, these are generally brief and well tolerated. He discovered that if he exercises when he experiences palpitations this would generally resolve any arrhythmia. Does not appear to feel poorly from medical therapy. He denies symptoms of dizziness or lightheadedness. He has not had presyncope or syncope. Currently he is feeling well. He denies pain at his operative site. He has no symptoms of dyspnea. He is not experiencing chest pain. He has no sense of palpitations currently. Allergies Allergy/AdvReac Type Severity Reaction Status Date / Time No Known Allergies Allergy Verified 05/18/18 05:47 Home Medications Home Medications Medication Instructions Recorded Confirmed Type aspirin [Aspir-81] 81 mg PO QAM 03/07/18 05/18/18 History omega 0-tkl-thi-fish oil [Fish Oil] 1 cap PO QAM 03/07/18 05/18/18 History turmeric root extract 500 mg PO QAM 03/07/18 05/18/18 History apixaban [Eliquis] 5 mg PO BID #60 tab 03/30/18 05/18/18 Rx metoprolol succinate 25 mg PO DAILY #30 tab 03/30/18 05/18/18 Rx Patient History Medical History Atrial fibrillation NEW ONSET 03/30/2018 - [facility] - ON ELIQUIS - FOLLOWS W/ DR. THURSTON BPH (benign prostatic hyperplasia) Degenerative disc disease LUMBAR STENOSIS Dyslipidemia History of prostate cancer SEE MRI (JAN 2018) SUGGESTIVE OF PROSTATE CA, REASON FOR PROCEDURE Hypertension Kidney stones Sciatica Surgical History History of appendectomy History of herniorrhaphy X2 WITH MESH - LEFT INGUINAL, UMBILICAL History of tonsillectomy Salivary gland calculi EXCISION OF STONE Family History Unknown Hypertension Social History Preferred Language: German Communication Ability: Effective Cook Fast Food Required: No Beliefs That Will Affect Care: None Current Living Situation: Spouse Other Information That Helps Us Care for You: No Feels Safe at Home: Yes Safety Concerns: Feels Safe At This Time Smoking Status: Never smoker Hx Alcohol Use: Yes Hx Substance Use: No Review of Systems Complete. Pertinent positives known history of present illness. Is relatively sedentary individual who does not perform routine exercise. He does complain of low back pain and this appears to limit his activity. Physical Exam Vital Signs (Past 24 Hours): Last Vital Signs Temp 36.3 C L 05/18/18 16:12 Pulse 62 05/18/18 16:12 Resp 16 05/18/18 16:12 BP 107/55 L 05/18/18 16:12 Pulse Ox 93 05/18/18 16:12 Physical Exam: The patient is alert and oriented. Mood and affect appeared normal. He answered all questions appropriately. HEENT: Pupils are equal and reactive to light and accommodation. Extraocular movements are intact. The sclerae are anicteric. Neuro: Cranial nerves intact Neck: Patient's neck is supple. He has palpable carotid pulses bilaterally without bruits on auscultation. There is no evidence of jugular venous distention. The thyroid is not enlarged. Lungs: Clear to auscultation bilaterally. He has good air movement without use of accessory muscles. No rales wheezes or rhonchi. Cardiac: Heart demonstrates a regular rate and rhythm. Normal S1 and S2. No murmurs on examination. Pulses: The patient has palpable radial pulses bilaterally that are equal in intensity Extremities: There was no evidence of hypoperfusion. There is no cyanosis or clubbing. There is no edema. Skin: I did not appreciate any rashes on examination today. There is a surgical drain to grenade suction. Results & Data Laboratory Results Abnormal Lab Results 05/18/18 05/18/18 05/18/18 05:47 13:14 13:14 WBC 11.65 H RBC 4.31 L Hgb 14.0 Hct 40.9 L MCV 94.9 MCH 32.5 MCHC 34.2 RDW Std Deviation 49.4 H RDW Coeff of Rosa 14.2 Plt Count 255 MPV 10.1 Immature Gran % (Auto) 0.3 Neut % (Auto) 88.4 Lymph % (Auto) 10.3 [place] % (Auto) 0.8 Eos % (Auto) 0.1 Baso % (Auto) 0.1 Immature Gran # (Auto) 0.04 H Neut # (Auto) 10.30 H Lymph # (Auto) 1.20 [place] # (Auto) 0.09 L Eos # (Auto) 0.01 Baso # (Auto) 0.01 PT INR Sodium 139 Potassium 4.4 Chloride 109 H Carbon Dioxide 21 Anion Gap 8.0 BUN 14 Creatinine 1.24 Est Cr Clr Drug Dosing 73.8 Est GFR ( Amer) 72.8 Est GFR (Non-Af Amer) 62.8 BUN/Creatinine Ratio 11.0 Glucose 152 H Calcium 7.7 L Total Bilirubin 0.6 AST 14 L ALT 23 Alkaline Phosphatase 61 Total Protein 6.6 Albumin 3.5 Globulin 3.1 Albumin/Globulin Ratio 1.1 Blood Type O Positive Antibody Screen NEGATIVE 05/18/18 05/18/18 05/18/18 14:51 14:51 15:32 WBC 12.37 H RBC 4.29 L Hgb 13.8 L Hct 40.6 L MCV 94.6 MCH 32.2 MCHC 34.0 RDW Std Deviation 48.7 H RDW Coeff of Rosa 14.3 Plt Count 222 MPV 10.0 Immature Gran % (Auto) 0.2 Neut % (Auto) 93.0 Lymph % (Auto) 5.3 [place] % (Auto) 1.4 Eos % (Auto) 0.0 Baso % (Auto) 0.1 Immature Gran # (Auto) 0.03 H Neut # (Auto) 11.51 H Lymph # (Auto) 0.65 L [place] # (Auto) 0.17 Eos # (Auto) 0.00 Baso # (Auto) 0.01 PT 10.4 INR 1.0 Sodium 137 Potassium 4.3 Chloride 107 Carbon Dioxide 24 Anion Gap 6.0 BUN 17 Creatinine 1.10 Est Cr Clr Drug Dosing 83.0 Est GFR ( Amer) 84.1 Est GFR (Non-Af Amer) 72.6 BUN/Creatinine Ratio 15.4 Glucose 144 H Calcium 7.9 L Total Bilirubin AST ALT Alkaline Phosphatase Total Protein Albumin Globulin Albumin/Globulin Ratio Blood Type Antibody Screen ECG Additional Comments: EKG reveals atrial fibrillation and rapid ventricular rates I reviewed his current telemetry reveals normal sinus rhythm and mild sinus bradycardia. An echocardiogram performed on 03/30/2018 revealed preserved LV systolic function. Mild aortic regurgitation otherwise unremarkable.
[2018-05-18] MEDS: ENOXAPARIN INJ 40 MG/0.4 ML SYR SQ SCH (18:54)
[2018-05-18] MEDS: FAMOTIDINE 20 MG in SYRINGE 3 ML IV SCH (18:55)
[2018-05-18] MEDS: ACETAMINOPHEN 1,000 MG/100 ML VIAL IV SCH (18:55)
[2018-05-18] MEDS: DOCUSATE SODIUM 100 MG CAP PO SCH (21:22)
[2018-05-19] MEDS: ACETAMINOPHEN 1,000 MG/100 ML VIAL IV SCH ×2 (02:00→12:38)
[2018-05-19] MEDS: OXYCODONE HCL IR 5 MG TAB (IMMEDIATE RELEASE) PO PRN ×3 (03:50→13:50)
--- NOTE | 2018-05-19 05:28 | Urology Progress Note ---
Date of Service May 19, 2018 Assessment & Plan (1) Prostate cancer: A/P 62 yo male with CAP s/p RALRP, BPLND. Intraop findings reviewed. Patient doing well, cardiology input appreciated. OOB and ambulate today, leg bag teaching, advance diet. Resume Eliquis in 2-3 days depending on degree of hematuria. If no further cardiology recommendations regarding a fib, anticipate DC home this PM. DC instructions reviewed with patient and . Present on Admission?: Yes Subjective 62 yo male POD#1 s/p RALRP, BPLND, BN reconstruction. In tele due to afib with tachycardia, HR in 90s while resting this AM. in room. Cardiology note appreciated - no pressing recommendations, results Eliquis per surgical plan (likely in 2-3 days). On Lovenox currently. Patient notes he is "sore," no OOB yet, floresita clears, no nausea or emesis. Min KASEY output so far. Constitutional: no fever and no chills Respiratory: no hemoptysis Cardiovascular: no chest pain Gastrointestinal: + abdominal pain; no nausea and no vomiting Integumentary: no acne and no boil Neurologic: no paralysis and no numbness Endocrine: + fatigue Physical Exam Vital Signs (Past 24 Hours): Last Vital Signs Temp 36.7 C 05/19/18 04:00 Pulse 66 05/19/18 04:00 Resp 18 05/19/18 04:00 BP 88/62 L 05/19/18 04:00 Pulse Ox 96 05/19/18 04:00 Constitutional: WD/WN, vitals as above Eyes: eyes not dysmorphic ENMT: Ears: no external ear abnormality Neck: trachea midline; no anterior neck swelling Respiratory: no respiratory distress and does not use accessory muscles Cardiovascular: Rate/Rhythm: + abnormal rhythm Vessels: radial pulses present Gastrointestinal (Abdomen): Percussion/Palpation: abdomen soft; abdomen nontender and no guarding inc c/d/i, KASEY in place Skin: normal turgor Neurologic: awake; not obtunded Psychiatric: Orientation: oriented x 3 Lymphatic: no lymphadenopathy Results & Data Laboratory Results Laboratory Results - last 48 hr 05/18/18 05/18/18 05/18/18 05:47 13:14 13:14 WBC 11.65 H RBC 4.31 L Hgb 14.0 Hct 40.9 L MCV 94.9 MCH 32.5 MCHC 34.2 RDW Std Deviation 49.4 H RDW Coeff of Rosa 14.2 Plt Count 255 MPV 10.1 Immature Gran % (Auto) 0.3 Neut % (Auto) 88.4 Lymph % (Auto) 10.3 [place] % (Auto) 0.8 Eos % (Auto) 0.1 Baso % (Auto) 0.1 Immature Gran # (Auto) 0.04 H Neut # (Auto) 10.30 H Lymph # (Auto) 1.20 [place] # (Auto) 0.09 L Eos # (Auto) 0.01 Baso # (Auto) 0.01 PT INR Sodium 139 Potassium 4.4 Chloride 109 H Carbon Dioxide 21 Anion Gap 8.0 BUN 14 Creatinine 1.24 Est Cr Clr Drug Dosing 73.8 Est GFR ( Amer) 72.8 Est GFR (Non-Af Amer) 62.8 BUN/Creatinine Ratio 11.0 Glucose 152 H Calcium 7.7 L Total Bilirubin 0.6 AST 14 L ALT 23 Alkaline Phosphatase 61 Total Protein 6.6 Albumin 3.5 Globulin 3.1 Albumin/Globulin Ratio 1.1 Blood Type O Positive Antibody Screen NEGATIVE 05/18/18 05/18/18 05/18/18 14:51 14:51 15:32 WBC 12.37 H RBC 4.29 L Hgb 13.8 L Hct 40.6 L MCV 94.6 MCH 32.2 MCHC 34.0 RDW Std Deviation 48.7 H RDW Coeff of Rosa 14.3 Plt Count 222 MPV 10.0 Immature Gran % (Auto) 0.2 Neut % (Auto) 93.0 Lymph % (Auto) 5.3 [place] % (Auto) 1.4 Eos % (Auto) 0.0 Baso % (Auto) 0.1 Immature Gran # (Auto) 0.03 H Neut # (Auto) 11.51 H Lymph # (Auto) 0.65 L [place] # (Auto) 0.17 Eos # (Auto) 0.00 Baso # (Auto) 0.01 PT 10.4 INR 1.0 Sodium 137 Potassium 4.3 Chloride 107 Carbon Dioxide 24 Anion Gap 6.0 BUN 17 Creatinine 1.10 Est Cr Clr Drug Dosing 83.0 Est GFR ( Amer) 84.1 Est GFR (Non-Af Amer) 72.6 BUN/Creatinine Ratio 15.4 Glucose 144 H Calcium 7.9 L Total Bilirubin AST ALT Alkaline Phosphatase Total Protein Albumin Globulin Albumin/Globulin Ratio Blood Type Antibody Screen
[2018-05-19] MEDS: ENOXAPARIN INJ 40 MG/0.4 ML SYR SQ SCH (05:31)
[2018-05-19] MEDS: FAMOTIDINE 20 MG in SYRINGE 3 ML IV SCH (05:33)
[2018-05-19 06:00] LABS: Eosinophils # (auto) 0.02 K/uL (0-0.5); Eosinophils % (auto) 0.2 %; Hematocrit (blood only) 36.3 % (42-52); Hemoglobin 12.2 g/dL (14.0-18.0); Immature Granulocytes # (auto) 0.02 K/uL (0.00-0.02); Immature Granulocytes % (auto) 0.2 %; Lymphocytes # (auto) 2.01 K/uL (1.2-3.4); Lymphocytes % (auto) 20.5 %; Mean Corpuscular Hgb Conc 33.6 g/dL (32-36); Mean Corpuscular Volume 95.3 fL (80-100); Mean Platelet Volume 10.1 fL (7.4-10.4); Monocytes % (auto) 8.2 %; Neutrophils # (auto) 6.95 K/uL (1.4-6.5); Neutrophils % (auto) 70.9 %; Platelet Count 210 K/uL (130-400); RDW Coefficient of Variation 14.5 % (11.5-14.5); RDW Standard Deviation 50.7 fL (36.4-46.3); Red Blood Count 3.81 M/uL (4.7-6.1)
[2018-05-19 06:28] LABS: BUN Creatinine Ratio 13.2 (10-20); Calcium 7.4 mg/dl (8.5-10.1); Creatinine Clr Calc Pharmacy 86.2 ml/min; Est GFR (Non-African American) 75.9; Potassium 4.1 mmol/L (3.5-5.1)
[2018-05-19] MEDS: LACTATED RINGER'S 1,000 ML IV SCH (06:38)
[2018-05-19] MEDS: DOCUSATE SODIUM 100 MG CAP PO SCH (07:58)
--- NOTE | 2018-05-19 08:18 | Anesthesiology Progress Note ---
Date of Service May 19, 2018 Anesthesia Post Procedure Vital Signs Vital Signs: Temp Pulse Pulse Pulse Resp BP BP 05/19/18 07:39 36.7 C 105 H 16 105/66 05/19/18 04:00 36.7 C 66 18 88/62 L 05/18/18 23:08 36.6 C 57 L 20 88/55 L 05/18/18 19:30 36.7 C 104 H 18 05/18/18 16:12 36.3 C L 62 16 107/55 L 05/18/18 15:02 36.6 C 62 19 121/70 05/18/18 14:20 63 15 129/72 05/18/18 14:05 36.6 C 64 15 131/76 05/18/18 13:55 62 12 132/66 05/18/18 13:45 61 13 128/62 05/18/18 13:35 68 19 136/70 05/18/18 13:25 68 19 146/86 H 05/18/18 13:15 121 H 121 H 22 143/87 H 140/112 H 05/18/18 13:05 182 H 13 85/61 L 05/18/18 12:55 134 H 11 L 146/86 H 05/18/18 12:54 169 H 146/86 H 05/18/18 12:48 36.5 C 133 H 16 140/109 H BP Pulse Ox 05/19/18 07:39 95 05/19/18 04:00 96 05/18/18 23:08 95 05/18/18 19:30 100/59 L 95 05/18/18 16:12 93 05/18/18 15:02 96 05/18/18 14:20 98 05/18/18 14:05 98 05/18/18 13:55 130/70 99 05/18/18 13:45 116/87 97 05/18/18 13:35 122/73 98 05/18/18 13:25 146/86 H 99 05/18/18 13:15 143/87 H 99 05/18/18 13:05 97 05/18/18 12:55 96 05/18/18 12:54 05/18/18 12:48 99 Pain Intensity Abdomen: Pain Intensity: 3 Notes Mental Status: alert / awake / arousable Patient Amnestic to Procedure: Yes Nausea / Vomiting: adequately controlled Pain: adequately controlled Airway Patency, RR, SpO2: stable & adequate BP & HR: stable & adequate Hydration State: stable & adequate Anesthetic Complications: no major complications apparent and Pt Satisfied with anesthetic care
[2018-05-19] MEDS ORDERED: NON-FORMULARY MEDICATION (Turmeric Root Extract 500 MG) PO SCH (09:00)
[2018-05-19] MEDS ORDERED: METOPROLOL SUCC 25MG EXT REL TAB PO SCH (09:00)
[2018-05-19] MEDS ORDERED: METOPROLOL TARTRATE 25 MG TAB PO ONE (12:30)
--- NOTE | 2018-05-19 13:08 | Cardiology Progress Note ---
Date of Service May 19, 2018 Assessment & Plan (1) Atrial fibrillation with rapid ventricular response: He has paroxysmal atrial fibrillation with rapid ventricular response. He is asymptomatic. He will likely convert to sinus rhythm. Additional 25 mg of metoprolol was ordered and with this, his heart rate improved but he became hypotensive with systolic blood pressure in the 80s. He was also hypotensive overnight. While in sinus, his heart rate is in the 50s and therefore a rate co ntrol strategy may be difficult. 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 He is not interested in a pacemaker. He prefers a rhythm strategy approach. Flecainide 100 mg was ordered x1 with 50 mg twice daily, which can be further titrated as appropriate to achieve rhythm control. We discussed potential adverse reactions of anti rhythmic therapy. Consider outpatient stress testing when recovered from surgery with the initiation of flecainide. Recommend resuming anticoagulation therapy as soon as safe from a surgical standpoint, especially while trying to convert him to sinus rhythm. Fortunately, we are within 48 hour window of onset of atrial fibrillation. Continue current dose of metoprolol. (2) Hypotension: He has a history of hypertension but has been intermittently hypotensive in the past 24 hours. This along with resting sinus bradycardia is limiting the titration of beta-margoth therapy for rate control strategy. He is a symptomatic. Disposition: I will be away from the hospital for the next few days. Dr. Bazan will be on-call and available for questions or concerns. He was updated on patient's clinical status and will evaluate his rhythm. If converts to sinus rhythm, would recommend discharging him on flecainide 50 mg twice daily with home dose of metoprolol. He will follow-up in the cardiology office in the next 1-2 weeks. Cardiology office will contact him with time and date of appointment. Subjective Yesterday he spontaneously converted to sinus rhythm but approximately 3:00 a.m. this morning, he went back into atrial fibrillation. His heart rate was reasonably controlled for the first several hours but for the past several hours he has had rapid ventricular response, even while sitting. While ambulating, his heart rate was noted by nursing staff to reach as high as 150s to 160s. He is completely asymptomatic. He denies chest pain, shortness of breath, palpitations, syncope, edema, or bleeding. He believes that he had an episode rapid heart rate a day or 2 prior to presentation as well. Review of systems: As above. Physical Exam Vital Signs (Past 24 Hours): Last Vital Signs Temp 36.9 C 05/19/18 12:00 Pulse 130 H 05/19/18 12:00 Resp 16 05/19/18 12:00 BP 117/95 05/19/18 12:00 Pulse Ox 96 05/19/18 12:00 Intake & Output 05/17/18 05/18/18 05/19/18 05/20/18 06:59 06:59 06:59 06:59 Intake Total 0 / 0 3879.167 / 3879.16 7 100 / 100 Output Total 1665 / 1665 Balance 0 / 0 2214.167 / 2214.16 7 100 / 100 Weight 96.303 kg 96 kg Physical Exam: Gen.: No acute distress. Alert and oriented. HEENT: Anicteric sclera. Neck: No JVD. Cardiac: PMI was nondisplaced. No ventricular heave. Irregularly irregular. Normal S1-S2. No murmurs, rubs, or gallops. Pulmonary: Clear to auscultation bilaterally without wheezes, rales, or rhonchi. Abdomen: Soft, nontender, nondistended, with normoactive bowel sounds. No bruits noted. Extremities: 2+ radial pulses bilaterally. 2+ posterior tibialis pulses bilaterally. No edema or cyanosis. Psychiatric: Affect appears appropriate. Results & Data Laboratory Results Laboratory Results - last 24 hr 05/18/18 05/18/18 05/18/18 13:14 13:14 14:51 WBC 11.65 H 12.37 H RBC 4.31 L 4.29 L Hgb 14.0 13.8 L Hct 40.9 L 40.6 L MCV 94.9 94.6 MCH 32.5 32.2 MCHC 34.2 34.0 RDW Std Deviation 49.4 H 48.7 H RDW Coeff of Rosa 14.2 14.3 Plt Count 255 222 MPV 10.1 10.0 Immature Gran % (Auto) 0.3 0.2 Neut % (Auto) 88.4 93.0 Lymph % (Auto) 10.3 5.3 Cowley % (Auto) 0.8 1.4 Eos % (Auto) 0.1 0.0 Baso % (Auto) 0.1 0.1 Immature Gran # (Auto) 0.04 H 0.03 H Neut # (Auto) 10.30 H 11.51 H Lymph # (Auto) 1.20 0.65 L Cowley # (Auto) 0.09 L 0.17 Eos # (Auto) 0.01 0.00 Baso # (Auto) 0.01 0.01 PT INR Sodium 139 Potassium 4.4 Chloride 109 H Carbon Dioxide 21 Anion Gap 8.0 BUN 14 Creatinine 1.24 Est Cr Clr Drug Dosing 73.8 Est GFR ( Amer) 72.8 Est GFR (Non-Af Amer) 62.8 BUN/Creatinine Ratio 11.0 Glucose 152 H Calcium 7.7 L Total Bilirubin 0.6 AST 14 L ALT 23 Alkaline Phosphatase 61 Total Protein 6.6 Albumin 3.5 Globulin 3.1 Albumin/Globulin Ratio 1.1 05/18/18 05/18/18 05/19/18 14:51 15:32 05:48 WBC 9.80 RBC 3.81 L Hgb 12.2 L Hct 36.3 L MCV 95.3 MCH 32.0 MCHC 33.6 RDW Std Deviation 50.7 H RDW Coeff of Rosa 14.5 Plt Count 210 MPV 10.1 Immature Gran % (Auto) 0.2 Neut % (Auto) 70.9 Lymph % (Auto) 20.5 Cowley % (Auto) 8.2 Eos % (Auto) 0.2 Baso % (Auto) 0.0 Immature Gran # (Auto) 0.02 Neut # (Auto) 6.95 H Lymph # (Auto) 2.01 Cowley # (Auto) 0.80 H Eos # (Auto) 0.02 Baso # (Auto) 0.00 PT 10.4 INR 1.0 Sodium 137 Potassium 4.3 Chloride 107 Carbon Dioxide 24 Anion Gap 6.0 BUN 17 Creatinine 1.10 Est Cr Clr Drug Dosing 83.0 Est GFR ( Amer) 84.1 Est GFR (Non-Af Amer) 72.6 BUN/Creatinine Ratio 15.4 Glucose 144 H Calcium 7.9 L Total Bilirubin AST ALT Alkaline Phosphatase Total Protein Albumin Globulin Albumin/Globulin Ratio 05/19/18 05:48 WBC RBC Hgb Hct MCV MCH MCHC RDW Std Deviation RDW Coeff of Rosa Plt Count MPV Immature Gran % (Auto) Neut % (Auto) Lymph % (Auto) Cowley % (Auto) Eos % (Auto) Baso % (Auto) Immature Gran # (Auto) Neut # (Auto) Lymph # (Auto) Cowley # (Auto) Eos # (Auto) Baso # (Auto) PT INR Sodium 135 L Potassium 4.1 Chloride 105 Carbon Dioxide 26 Anion Gap 4.0 BUN 14 Creatinine 1.06 Est Cr Clr Drug Dosing 86.2 Est GFR ( Amer) 88.0 Est GFR (Non-Af Amer) 75.9 BUN/Creatinine Ratio 13.2 Glucose 97 Calcium 7.4 L Total Bilirubin AST ALT Alkaline Phosphatase Total Protein Albumin Globulin Albumin/Globulin Ratio Diagnostic Findings Telemetry personally reviewed: Atrial fibrillation with rapid ventricular response. Sinus rhythm converted atrial fibrillation at approximately 3:00 a.m.. Medications Administered Current Inpatient Medications Docusate Sodium (Colace) 100 mg PO BID [facility] Stop: 06/17/18 20:59 Last Admin: 05/19/18 07:58 Dose: 100 mg Documented by: Enoxaparin Sodium (Lovenox) 40 mg SQ Q12H [facility] Stop: 06/17/18 17:59 Last Admin: 05/19/18 05:31 Dose: 40 mg Documented by: Lactated Ringer's (Lr) 1,000 mls @ 125 mls/hr IV .Q8H [facility] Stop: 06/17/18 14:42 Last Admin: 05/19/18 06:38 Dose: 125 mls/hr Documented by: Famotidine 20 mg/ Syringe 5 mls @ 2.5 mls/min IV Q12H [facility] Stop: 06/17/18 17:59 Last Admin: 05/19/18 05:33 Dose: 2.5 mls/min Documented by: Acetaminophen (Ofirmev) 1,000 mg in 100 mls @ 400 mls/hr IV Q8H [facility] Stop: 06/17/18 17:59 Last Admin: 05/19/18 12:38 Dose: 400 mls/hr Documented by: Metoprolol Succinate (Toprol Xl) 25 mg PO DAILY [facility] Stop: 06/18/18 08:59 Last Admin: 05/19/18 07:58 Dose: 25 mg Documented by: Morphine Sulfate (Morphine Sulfate) 4 mg IV Q3H PRN PRN Reason: mild pain (scale 1-3) Stop: 06/01/18 14:42 Ondansetron HCl (Zofran) 4 mg IV Q6H PRN PRN Reason: Nausea And Vomiting Stop: 06/17/18 14:42 Oxycodone HCl (Roxicodone Immediate Rel) 5 mg PO Q4H PRN PRN Reason: moderate pain (scale 4-6) Stop: 06/01/18 14:42 Last Admin: 05/19/18 07:58 Dose: 5 mg Documented by: Oxycodone HCl (Roxicodone Immediate Rel) 10 mg PO Q4H PRN PRN Reason: severe pain (scale 7-10) Stop: 06/01/18 14:42
[2018-05-19] MEDS ORDERED: OXYCODONE HCL IR 5 MG TAB (IMMEDIATE RELEASE) PO PRN (13:26)
[2018-05-19] MEDS ORDERED: FLECAINIDE ACETATE 100 MG TABLET PO ONE (14:00)
[2018-05-19 15:11] VITALS: PULSE 87; TEMP 98.6; O2SAT 92
[2018-05-19 18:25] VITALS: BP 117/95
[2018-05-19] MEDS ORDERED: FLECAINIDE ACETATE 100 MG TABLET PO SCH (21:00)
--- NOTE | 2018-05-19 23:08 | Operative Report ---
DATE OF OPERATION: 05/18/2018 PREOPERATIVE DIAGNOSIS: [place] 3+4 (+5) adenocarcinoma of the prostate. POSTOPERATIVE DIAGNOSIS: Same. PROCEDURE: Robot-assisted laparoscopic radical retropubic prostatectomy, bladder neck reconstruction, and bilateral pelvic lymph node dissection. SURGEON: Josiah Epperson MD POLITICAL CONSULTANT: LALO Muhammad. Speech Assistant was present throughout the case for assistance with retraction, suction, passage of the instruments and needles, exchange of robotic instruments, positioning, laparoscopic access, and general patient safety. ANESTHESIA: General anesthesia with endotracheal intubation with local at all port sites. DRAINS LEFT IN PLACE: Include a 20-Italian Gardiner catheter with 15 mL of sterile water in the balloon. SPECIMENS SENT TO PATHOLOGY: Periprostatic fat, bladder neck margin, prostate plus seminal vesicles, left pelvic lymph nodes, and right pelvic lymph nodes. ESTIMATED BLOOD LOSS: 100 mL. IV FLUIDS: 1200 mL of crystalloid. FINDINGS: Posterior vesicotomy closed without any injury to the ureters. Significant left lower quadrant scarring from prior mesh hernia repair limiting the extent of the obturator lymph node dissection. Watertight closure of the anastomosis after completion of the case and bladder repair. BRIEF HISTORY: Mr. Barillas is a pleasant 62-year-old male with a history of [place] 3+4 with tertiary [place] 5 adenocarcinoma of the prostate. He is here today for robotic prostatectomy to manage his disease. He was previously scheduled, but found to have new-onset atrial fibrillation at the time of his actual surgery date on monitoring. He has therefore been pushed back until today after cardiology evaluation. He has been on Eliquis, which is now on hold per cardiology recommendations. Intravenous cephalosporins were provided for antibiotic coverage and SCDs used for DVT prophylaxis. Please see H and P for further details. Consent was reviewed with the patient and preoperatively today. Intravenous Tylenol was provided preoperative for additional postoperative analgesia. DESCRIPTION OF PROCEDURE: The patient was properly identified and brought into the operative suite after identification of appropriate consent on the chart. General anesthesia with endotracheal intubation was initiated and the patient was prepped and draped in the standard fashion for this procedure. time recorder-out procedure was followed. Port sites were anesthetized with local prior to incision. The patient's previous hernia repair incision was used at the level of the umbilicus in a lateral fashion to enter the abdomen under direct visualization using a 0-degree laparoscope and a visual obturator. Abdomen was entered without difficulty or trauma and insufflated to 15 mmHg. Laparoscopy demonstrated normal intra-abdominal anatomy save for some scarring in the left lower quadrant with the bowel, omentum, and abdominal wall at the site of previous hernia repair with mesh being present. This was not overly extensive but did require some dedicated attention and caution to avoid. Ports were placed for a standard 4th arm robotic template with 2 left-sided 7-mm robotic ports, 1 right-sided 7-mm robotic port, and a 5- and 12-mm pastoral assistant port. The patient was placed in Trendelenburg and robot was brought in and docked. A 0-degree lens was used to drop the bladder down to the level of the endopelvic fascia. Again, scarring on the left hand side extended into the pelvis and had to be circumscribed. The patient's periprostatic fat was excised and sent for pathologic analysis. Endopelvic fascia was noted to be attenuated on both sides and relatively open. Lateral dissection was carried down to the level of the apex of the prostate, which was noted to be relatively small and the dorsal venous vein was skeletonized and controlled with an 0 Vicryl suture on a CT1 needle in a [id number] fashion. After this was complete, the bladder neck was placed on traction with the 30-degree down lens and the bladder neck was divided down to the level of the Gardiner catheter, which was used for anterior traction with the fourth arm on the prostate. The patient was noted to have a relatively tight pelvis but thankfully access was still forthcoming. The posterior bladder neck was divided and dropped in the midline. Due to the small size of the prostate on the posterior dissection, a buttonhole injury to the trigone was appreciated. The surgical plane was rapidly corrected and able to be brought down to the seminal vesicles and vas deferens without further injury to the prostate or the bladder. Vas deferens were circumscribed and divided in midline and seminal vesicles were dissected free. Cold scissors were used to drop the rectum in the midline at the level of the apex of the prostate. The prosthetic pedicles were skeletonized and controlled using Weck clips. On the right hand side where the patient's disease was present, a small rim of fatty tissue was left on the prostate gland while on the left side a more complete nerve sparing dissection was undertaken. This was carried down to the level of the apex of the prostate. Methylene blue had been administered after appreciation of the patient's bladder injury for inspection later in the case. Dorsal venous complex was then divided. The apex of the prostate was cautiously dissected free. The patient was noted to have quite an anterior urethra which was circumscribed and divided using cold scissors after sparing as much as possible. [place] of the patient's prostate was noted to be pushed somewhat through the pelvic musculature as well. Rectourethralis fibers were divided and then prostate was delivered up into the abdominal cavity where it was placed within an EndoCatch bag for retrieval at the end of the case. Rectum was inspected and insufflated under saline irrigation and noted to be free of any injury. A small amount of FloSeal was placed over the prostatic bed for further hemostasis. Attention was then turned to the bladder neck and bladder injury. Due to the relatively small aperture of the bladder neck, the bladder could not be well inspected and in any case seeing that the vesicotomy was going to require closure of the bladder neck dissection, vesicotomy were joined to allow for easier inspection. The vesicotomy was noted to be biased toward the patient's left. The right ureteral orifice was well removed and the left ureteral orifice was noted to be a good 1-2 cm away from the level of injury and effluxing urine. A bladder neck reconstruction was then performed with a fish mouth closure being done on the left hand side dunking the ureteral orifice away from the anastomosis. A smaller amount of closure was required on the patient's right hand side. After this was complete, an excellent aperture to the bladder neck was appreciated for completion of the anastomosis later. Decision was made not to provide an SP tube seeing the need for bladder neck reconstruction. Attention was then turned to the pelvic lymph node dissection which was carried out bilaterally. On the right hand side, a generous joseph packet was dissected free from the external iliac vessels, pelvic side wall down to the level of the obturator nerve. Monopolar cautery and Weck clips were used as necessary for control of small blood and lymphatic vessels. Attention was turned to the right hand side where further scarring was present as noted before over the level of the iliac vessels and the obturator. This made the anatomy somewhat more difficult. To avoid risk of any injury, a more limited dissection was carried out on this side again using monopolar cautery and Weck clips as necessary for control of vessels and lymphatics. The left-handed packet was tagged using a Weck clip and both were placed within a second EndoCatch bag for removal at the end of the case. Attention was then turned to the pelvis where excellent hemostasis was appreciated. Using a double armed V-Loc suture, a circumferential running anastomosis was performed. Care was taken to avoid any deep bites at the level of the left ureteral orifice. After this was complete, a 20-Italian Gardiner catheter was visualized easily entering the bladder neck. Closure was completed and then tested. At the level of the left-sided closure, small points of leakage between the 3-0 Vicryl suture, which had been used to complete the bladder neck closure were appreciated. A second superficial layer of closure with a 2-0 V-Loc suture was performed and when retested a watertight anastomosis was noted. A 15 mL of sterile water were placed within the wound. Fourth arm was removed and a #10 KASEY drain was brought in via the fourth arm port. This was placed within the confines of the pelvis while avoiding placing it directly over the anastomosis. The remainder of the FloSeal was placed in the obturator fossa on both sides. The robotic instruments were removed as well as the robotic ports. Excess carbon dioxide gas was removed from the abdomen and the supraumbilical incision was enlarged sufficiently to allow for easy removal of the specimen bags. This was closed using a 0 Vicryl suture on a UR-5 needle in a running fashion. Subcutaneous tissues were closed using 3-0 Vicryl with a 2-0 silk used to secure the drain in place. Skin was closed using 4-0 Monocryl and Dermabond dressings. Anesthesia was reversed and the patient was transferred to the recovery room in stable condition. FOLLOWUP CARE: Of note, in the recovery room as managed by the anesthesia service, the patient went into a short span of a rapid response atrial fibrillation with some decrease in his blood pressure. However, this normalized prior to the requirement for cardioversion. The patient was placed on a monitored bed as had been planned preoperatively with the cardiology consultation forthcoming. We will place on Lovenox for venous anticoagulation seeing the patient's history of atrial fibrillation. Otherwise, patient's postsurgical care as well as diet and activity will be advanced per the routine. I attest to the content of the Intraoperative Record and any orders documented therein. Any exception s are noted below.
--- NOTE | 2018-05-20 14:05 | Discharge Summary ---
Date of Service May 30, 2018 Discharge Data Consultations 05/18/18 14:08 Consult Cardiology Routine Procedures Performed Operation Date: 05/18/18 07:30 Actual Procedures p Robotic Assisted Laparoscopic Prostatectomy,Bladder Neck Reconstruction and Bilateral Pelvic Lymph Node Dissection(Not Applicable) - Josiah Epperson MD
--- NOTE | 2018-05-23 05:04 | Coding Query ---
CODING QUERY To promote full compliance with coding requirements relating to patient care, provider participation is requested in all cases of medical record coder uncertainty. Please assist us with the question(s) below: Coding Question(s): Patient with CA of prostate. A robotic prostatectomy was done with pelvic lymph node excision. Please check the phrase that applies to the vesicotomy . Thanks for your help! CLE[facility]ATRA Gaines [facility] Physician's Response(s): The vesicotomy was an expected occurrence during the procedure ____X____ The vesicotomy was a complication of the procedure Cannot determine if the vesicotomy was a complication of th procedur Other/ Please document: Principal Diagnosis: "that condition established after study, to be chiefly responsible for occasioning the admission of the patient to the hospital for care." Co-Existing Principal Diagnosis: "when two or more diagnoses equally meet the criteria for principal diagnosis as determined by the circumstances of admission, diagnostic work up, and/or therapy provided, and the Alphabetic Index, Tabular List, or another coding guideline does not provide sequencing direction, any one of the diagnoses may be sequenced first." "When the physician has documented what appears to be a current diagnosis in the body of the record, but has not included the diagnosis in the final diagnostic statement, the physician should be asked whether the diagnosis should be added." ([facility] 2 QTR90. p3-4) AGNES
--- NOTE | 2018-05-28 00:16 | Discharge Summary ---
ADMITTING DIAGNOSIS: Prostate cancer. DISCHARGE DIAGNOSIS: Prostate cancer. ADMITTING ATTENDING: Josiah Epperson MD COMPLICATIONS OVER THE COURSE OF ADMISSION: None. PROCEDURES OVER THE COURSE OF ADMISSION: Hospitalization Include a robot-assisted laparoscopic medical retropubic prostatectomy and bilateral pelvic lymph node dissection on 05/18/2018. BRIEF HISTORY: Mr. Barillas is a pleasant 62-year-old male who I have seen for a diagnosis of prostate cancer has decided upon a robotic prostatectomy to manage his disease. Please see H and P for details. The patient is being admitted for this purpose. HOSPITAL COURSE: The patient was admitted after a robotic prostatectomy on 05/18/2018. Please see operative details. Gardiner catheter was left in place rather than suprapubic tube to do a repair of vesicotomy with watertight anastomosis at the time of surgery. Postoperatively, the patient's course was uncomplicated with advancement of diet and activity rapidly. By postoperative day #1, the patient was ambulatory in the hallways, tolerating a regular diet and comfortable on oral pain medication. Minimal KASEY output was appreciated throughout the admission. The patient was considered stable for discharge home at this time after removal of Gardiner catheter. DISCHARGE INSTRUCTIONS: Outpatient appointments for a trial of void and pathology discussion are confirmed. The patient is instructed to contact our service should he note any fevers, chills, nausea, vomiting, or other difficulties in the postoperative period. Outpatient appointments are confirmed and activity limitations reviewed. Please see discharge medication list for further details.
== END 2018-05-19 22:12 | disposition home or self-care (01) | DRG 707 ==
LOC: ASU 05:18 → 2E 12:50